=== PATIENT | female | born 1990 | race Caucasian/White ===

== ENCOUNTER 2021-05-18 15:30 | Emergency (ER) | payer OTHER, SELFPAY ==
--- NOTE | 2021-05-18 15:42 | ED.URI ---
HPI - URI/Sore Throat General Chief Complaint: Upper Respiratory Infection Stated Complaint: Sinus,Bilateral Ear Irritation Time Seen by Provider: 05/18/21 15:55 Source: patient and RN notes reviewed Mode of arrival: ambulatory Limitations: no limitations History of Present Illness HPI Narrative: 30-year-old female presents with concern for 2 to 3-week history of nasal congestion, purulent drainage, sinus, headache, cough. Reports ear pain with a feeling of ear fullness and popping. Reports she has been using several [id number] medications. Reports has been using heating pad on her ears at night. She denies fever, body aches, chills, sweats. MD elicited complaint: rhinorrhea, nasal congestion and sinus pain Related Data Allergies Allergy/AdvReac Type Severity Reaction Status Date / Time Penicillins Allergy Unknown Rash Verified 05/18/21 15:53 Review of Systems Review of Systems: CONSTITUTIONAL: Denies malaise, chills, sweats, or fever. EYES: Denies visual changes, redness, or discharge. ENT: Reports rhinorrhea, congestion, sinus pain, otalgia CARDIOVASCULAR: Denies chest pain, palpitations, or edema. RESPIRATORY: Reports cough. Denies dyspnea. GASTROINTESTINAL: Denies abdominal pain, nausea, vomiting, diarrhea SKIN: Denies rash or itching. MUSCULOSKELETAL: Denies myalgia. NEUROLOGIC: Denies headache. All systems reviewed & are unremarkable except as noted in HPI and below PMFSH Comments At time of signature, agree with nursing past medical, surgical, social and family history. There is no relevant family history pertinent to the presenting complaint Exam Narrative: GENERAL: Well-appearing, well-nourished, and in no acute distress. HEAD: Normocephalic EYES: PERRLA, conjunctivae clear ENT: Nares clear, turbinates edematous and erythematous, sinus tenderness. Mucous membranes moist. TM pearly more with dull light reflex bilaterally; no tragal tenderness. Oropharynx not erythematous without lesions. Tonsils not enlarged and without exudate, no drooling, no hoarseness, no trismus, uvula midline. NECK: Supple. No lymphadenopathy CHEST: Clear to auscultation, breath sounds equal. No wheezing, rhonchi, rales, or stridor. No respiratory distress, speaks in full sentences. HEART: Regular rate and rhythm. No murmur heard. SKIN: Warm, dry, no rash. NEURO: Alert and oriented x3. PSYCH: Normal mood and affect Course Course Emergency Course: Patient is aware of diagnosis, understands and agrees to treatment plan. Anticipatory guidance given. Patient agrees to follow-up as directed and is aware of reasons to seek care at the emergency department. Portions of this record may have been created with voice recognition software Level of Care: Express Care Visit Vital Signs Vital signs: Reviewed. MDM - URI/Sore Throat MDM Narrative Medical decision making narrative: Differential diagnosis considered: Ramesh virus, strep pharyngitis, allergic rhinitis, upper respiratory tract infection, sinusitis, rhinosinusitis, nasopharyngitis. viral pharyngitis, otitis media, otitis externa, pneumonia, bronchitis, viral cough syndrome, viral syndrome, and influenza. Exam findings show no acute concerns or changes; patient is non-toxic appearing and is in no distress. Patient is appropriate for outpatient treatment and follow-up. Lab Data Attestation: I reviewed the patient's lab results. Critical Care Time Critical Care Time Critical Care Time: No Discharge Plan Discharge Clinical Impression: Acute bacterial sinusitis Patient Disposition: Home, Self-Care Condition: Stable Instructions: Antibiotic Form, Sinusitis (ED) Additional Instructions: Take medications as directed Nonprescription pain medications, such as acetaminophen (eg, Tylenol) or ibuprofen (eg, Motrin, Advil), are recommended for pain. Flushing the nose and sinuses with a saline solution several times per day has been proven to decrease pain associated with congestion
[2021-05-18 15:46] VITALS: BP 115/80; PULSE 118; RESP 18; TEMP 36.5; O2SAT 98
== END 2021-05-18 16:12 | disposition home or self-care (01) ==
PROVIDERS: Emergency Provider Nurse Practitioner
DX: J01.90 Acute sinusitis, unspecified (principal); F17.200 Nicotine dependence, unspecified, uncomplicated
CPT/HCPCS: 99213; G0463

== ENCOUNTER 2023-04-16 00:25 | Emergency (ER) | payer SELFPAY ==
[2023-04-16] VITALS (15 sets, daily range): BP systolic 101–125; BP diastolic 52–77; PULSE 79–117; RESP 16–22; TEMP 36.3–36.9; O2SAT 92–100
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
--- NOTE | 2023-04-16 01:04 | PC.NURSE ---
Pt taken to room 11 and put on surface mount technology operator. Sitter at bedside.
[2023-04-16 01:17] LABS: Appearance Urine Clear (Clear); Bilirubin Urine Negative (Negative); Blood Urine Negative (Negative); Color Urine Yellow (Yellow); Glucose Urine UA Negative (Negative); Ketones Urine Negative (Negative); Leukocyte Esterase Ur Negative LEU/UL (Negative); Nitrate Urine Negative (Negative); Protein Urine Negative (Negative); Specific Grav Ur 1.008 (1.001-1.035); Urobilinogen Urine 0.2 mg/dL (<2.0)
[2023-04-16 01:19] LABS: Basophils Absolute Auto 0.1 K/mm3 (0.0-0.1); Basophils Percent Auto 0.7 % (0.2-1.2); Eosinophils Absolute Auto 0.3 K/mm3 (0-0.3); Eosinophils Percent Auto 2.9 % (0-4.4); Hematocrit 41.4 % (37.0-47.0); Hemoglobin 13.9 g/dL (12.0-15.0); Immature Granulocyte Absolute 0.13 K/mm3 (0.00-0.031); Immature Granulocyte Percent A 1.4 % (0-0.5); Lymphocytes Absolute Auto 1.29 K/mm3 (0.9-3.2); Lymphocytes Percent Auto 14.3 % (18.3-44.2); Mean Corpuscular HGB Conc 33.6 g/dl (32-36); Mean Corpuscular Hemoglobin 28.8 pg (26-34); Mean Corpuscular Volume 85.9 fl (80-100); Mean Platelet Volume 9.5 fl (7.4-10.4); Monocytes Absolute Auto 0.5 K/mm3 (0.1-0.6); Monocytes Percent Auto 5.8 % (2.6-8.5); Neutrophils Absolute Auto 6.8 K/mm3 (1.3-6.7); Neutrophils Percent Auto 74.9 % (45.5-73.1); Platelet Count Result 339 k/mm3 (150-375); Red Blood Count 4.82 M/mm3 (4.2-5.4); Red Cell Distribution Width 14.6 % (11.5-14.5)
--- NOTE | 2023-04-16 01:23 | ECG_ITS ---
Measurements Intervals [place] Rate: 82 P: 78 WA: 150 QRS: 64 QRSD: 93 T: 52 QT: 387 QTc: 452 Interpretive Statements SINUS RHYTHM LOW QRS VOLTAGE OTHERWISE NORMAL ELECTROCARDIOGRAM NO PREVIOUS ECG AVAILABLE FOR COMPARISON Electronically Signed On 04-16-2023 8:11:03 KNOWLEDGE MANAGER by Zain Zuluaga M.D.
[2023-04-16 01:25] LABS: Add Urine Microscopic? NO
[2023-04-16 01:27] LABS: Alanine Aminotransferase 16 U/L (6-35); Albumin Level 4.4 g/dL (3.5-5.1); Alkaline Phosphatase 121 U/L (38-126); Anion Gap 10 mmol/L (8-16); Aspartate Amino Transferase 25 U/L (14-36); Bilirubin,Total 0.5 mg/dL (0.2-1.3); Blood Urea Nitrogen 8 mg/dL (7-17); Calcium 8.8 mg/dL (8.4-10.2); Carbon Dioxide 25 mmol/L (22-30); Chloride 110 mmol/L (98-107); Estimated CRCL calculation 119 ml/min; Estimated Glomerular Filt Rate > 60; Ethanol 215 mg/dL (<10); Glucose 134 mg/dL (65-110); Potassium 3.5 mmol/L (3.4-5.0); Sodium 145 mmol/L (137-145)
[2023-04-16 01:53] LABS: Influenza A QL RT-PCR Negative (Negative); Influenza B QL RT-PCR Negative (Negative); RSV RNA, RT-PCR Negative (Negative); SARS-CoV-2 RNA PCR Negative (Negative)
--- NOTE | 2023-04-16 01:56 | ED.PSYCH ---
HPI - Psych General Chief Complaint: Psychiatric Symptoms <Antonio Courtney DO - Last Filed: 04/16/23 07:17> Stated Complaint: ETOH, SI-took meds <Antonio Courtney DO - Last Filed: 04/16/23 07:17> Time Seen by Provider: 04/16/23 00:48 <Antonio Courtney DO - Last Filed: 04/16/23 07:17> Source: patient and EMS <Antonio Courtney DO - Last Filed: 04/16/23 07:17> Limitations: intoxication <Antonio Courtney DO - Last Filed: 04/16/23 07:17> History of Present Illness HPI Narrative: Patient is a 32-year-old female presents to the emergency department by EMS for alcohol intoxication and suicidal ideations. Patient reportedly was driving around intoxicated and called police telling them that she wanted to hang herself and she was tracked down at her home where EMS picked her up and was reporting suicidal ideations with thoughts of wanting to hang herself was brought in for further evaluation. Patient denies any homicidal or suicidal ideations. Patient admitted to taking 2 Seroquel and 2 trazodone earlier tonight. Patient is refusing to answer further questions. <Antonio Courtney DO - Last Filed: 04/16/23 07:17> Related Data Home Medications: Home Medications Medication Instructions Recorded Confirmed dextroamphetamine-amphetamine 12.5 25 mg PO DAILY 04/17/23 04/17/23 mg tablet (Adderall) fluoxetine 20 mg capsule (Prozac) 20 mg PO DAILY 04/17/23 04/17/23 hydroxyzine HCl 50 mg tablet 50 mg PO TID PRN Insomnia 04/17/23 04/17/23 lisdexamfetamine 70 mg capsule 70 mg PO DAILY 04/17/23 04/17/23 (Vyvanse) propranolol 10 mg tablet 10 mg PO Q12H 04/17/23 04/17/23 quetiapine 100 mg tablet (Seroquel) 100 mg PO HS 04/17/23 04/17/23 trazodone 150 mg tablet 150 mg PO HS PRN Insomnia 04/17/23 04/17/23 venlafaxine 150 mg 150 mg PO DAILY 04/17/23 04/17/23 capsule,extended release 24 hr (Effexor XR) venlafaxine 75 mg capsule,extended 75 mg PO DAILY 04/17/23 04/17/23 release 24 hr (Effexor XR) <Antonio Courtney DO - Last Filed: 04/16/23 07:17> Allergies/Adverse Reactions: Allergies Allergy/AdvReac Type Severity Reaction Status Date / Time Penicillins Allergy Unknown Rash Verified 04/16/23 01:04 <Antonio Courtney DO - Last Filed: 04/16/23 07:17> Review of Systems Review of Systems: ROS unobtainable: Yes other (Unable to obtain due to noncompliance with questioning.) <Antonio Courtney DO - Last Filed: 04/16/23 07:17> [facility] Social History Social History: Social History Substance use type: marijuana, crack/cocaine and amphetamines <Antonio Courtney DO - Last Filed: 04/16/23 07:17> Comments At time of signature, I have reviewed and agree with nursing past medical, surgical, social and family history unless otherwise noted. Please see the nursing chart for further information. There is no relevant family history pertinent to the presenting complaint. <Antonio Courtney DO - Last Filed: 04/16/23 07:17> Exam Narrative: CONST: No acute distress. Well nourished. Appears intoxicated. HENMT: Head is normocephalic and atraumatic. Moist mucous membranes. No posterior oropharynx erythema. EYES: No conjunctival icterus, injection, or pallor. PERRL. Bilateral horizontal nystagmus. NECK: No meningeal signs. RESP: Able to speak in full sentences. Normal respiratory effort. CTAB. CARDIO: Regular rate. Regular rhythm. 2+ DP and radial pulses bilaterally. GI: Nondistended. No tenderness to palpation. Soft. : No CVA tenderness to palpation. SKIN: Bilateral anterior forearms have superficial well-healing lacerations. NEURO: Oriented x3. Moves all extremities. No focal neurological deficits. EXTREM/MSK/BACK: No pedal edema. PSYCH: Normal affect. <Antonio Courtney DO - Last Filed: 04/16/23 07:17> Course Course Emergency Course: 07:00 ([place]) - This patient was signed out to me by previous ED physician, Dr. Courtney pending repeat alcohol
[2023-04-16 02:03] LABS: Amphetamine Screen Urine Positive (Negative); Barbiturate Screen Urine Negative (Negative); Benzodiazepines Screen Urine Negative (Negative); Cannabinoid Screen Urine Positive (Negative); Cocaine Screen Urine Negative (Negative); Methadone Screen Urine Negative (Negative); Opiate Screen Urine Negative (Negative); Phencyclidine Screen Urine Negative (Negative)
[2023-04-16] MEDS: SODIUM CHLORIDE 0.9% IV 1,000 ML 999 ML IV CONT (04:39)
--- NOTE | 2023-04-16 04:43 | PC.NURSE ---
Pt states she attempted to commit suicide last night. Pt states she found a cord in her car and started to tie it to a pavilion in attempt to hang herself. Pt decided to not go through with attempt and wanted to see her kids one more time.
--- NOTE | 2023-04-16 07:10 | PC.NURSE ---
report given to DIANE bowden at this time.
[2023-04-16 07:52] LABS: Ethanol 33 mg/dL (<10)
--- NOTE | 2023-04-16 08:24 | PC.NURSE ---
Pt medically cleared by Dr. Carranza
--- NOTE | 2023-04-16 08:26 | PC.NURSE ---
Pt [place] Suicide risk provided to pt, Pt high risk, sitter at bedside. Pt states she has had recent family issues of risk of losing custody of children to her Ex. Pt also states in last month pt has been placed on Vyvanse in place of Adderall. Pt tearful at bedside.
--- NOTE | 2023-04-16 08:32 | PC.NURSE ---
Safety Tray ordered for pt
--- NOTE | 2023-04-16 13:00 | PC.NURSE ---
Dora from [facility], no beds available at this time.
--- NOTE | 2023-04-16 23:13 | PC.NURSE ---
pt care and report given to DIANE Thorpe. all questions answered.
--- NOTE | 2023-04-17 00:55 | PC.NURSE ---
Addendum entered by Ila Del Rio RN 04/17/23 03:47: IV catheter still intact. Gauze applied to IV site. Original Note: Pt accidentally pulled her IV out while moving around in bed.
[2023-04-17 05:58] VITALS: BP 118/68; PULSE 72; RESP 16; TEMP 37.4; O2SAT 98
--- NOTE | 2023-04-17 07:51 | PC.NURSE ---
Pt was offered a meal, tooth brush, brush, and a shower. Pt was taken up to shower by tech and ED security at ths time.
--- NOTE | 2023-04-17 07:53 | PC.NURSE ---
Breakfast tray ordered
--- NOTE | 2023-04-17 09:06 | PC.NURSE ---
Called [facility] and obtained a current medication list. updated chart and ordered prescribed meds
--- NOTE | 2023-04-17 09:35 | PC.NURSE ---
This RN faxed pt records to [facility] ([phone]) and [email or web address] ([phone]) as requested at this time.
[2023-04-17] MEDS: hydrOXYzine HCL 25 MG TABLET 50 MG PO (09:46)
[2023-04-17] MEDS: VENLAFAXINE HCL XR 75 MG CAP.ER.24H 225 MG PO (09:46)
[2023-04-17] MEDS: FLUoxetine HCL 20 MG CAPSULE PO (09:46)
[2023-04-17 09:54] VITALS: BP 104/85; PULSE 95; RESP 18; O2SAT 92
[2023-04-17] MEDS: PROPRANOLOL HCL 10 MG TABLET PO (09:54)
[2023-04-17 13:52] VITALS: BP 116/69; PULSE 81; RESP 18; TEMP 36.7; O2SAT 96
== END 2023-04-17 16:02 ==
PROVIDERS: Student in an Organized Health Care Education/Training Program; Emergency Provider Preventive Medicine Aerospace Medicine
DX: R45.851 Suicidal ideations (principal); F19.10 Other psychoactive substance abuse, uncomplicated; F10.920 Alcohol use, unspecified with intoxication, uncomplicated; Y90.7 Blood alcohol level of 200-239 mg/100 ml; Z11.52 Encounter for screening for COVID-19
CPT/HCPCS: 36415; 80053; 80307; 81003; 81025; 84443; 85025; 87637; 93005; 96360; 99285; A9270; J7030